=== PATIENT | male | born 1965 | race Two or more races ===

== ENCOUNTER 2016-11-09 23:45 | Emergency (ER) | payer OTHER ==
[~2016-11-09] VITALS: Ht 167.6 cm; Wt 136.1 kg
[~2016-11-09 23:45] MED LIST: [UNRECOGNIZED DRUG - CODE] PO
[2016-11-10 00:27] VITALS: BP 103/85
== END 2016-11-10 04:08 | disposition home or self-care (01) ==
LOC: ER 23:53
DX: B86 Scabies (principal); J44.9 Chronic obstructive pulmonary disease, unspecified; I10 Essential (primary) hypertension; I25.2 Old myocardial infarction; E11.9 Type 2 diabetes mellitus without complications; F17.210 Nicotine dependence, cigarettes, uncomplicated; Z85.9 Personal history of malignant neoplasm, unspecified

== ENCOUNTER 2017-01-15 14:27 | Emergency (ER) | payer OTHER ==
[~2017-01-15] VITALS: Ht 167.6 cm; Wt 136.1 kg
[2017-01-15 15:55] VITALS: BP 141/84
== END 2017-01-15 16:16 | disposition home or self-care (01) ==
LOC: ER 14:33
DX: B86 Scabies (principal); M13.862 Other specified arthritis, left knee; F17.210 Nicotine dependence, cigarettes, uncomplicated; M19.90 Unspecified osteoarthritis, unspecified site; J44.9 Chronic obstructive pulmonary disease, unspecified; E11.9 Type 2 diabetes mellitus without complications; I10 Essential (primary) hypertension; I25.2 Old myocardial infarction; X58.XXXD Exposure to other specified factors, subsequent encounter

== ENCOUNTER 2018-04-29 18:54 | Emergency (ER) | payer MEDICAID, OTHER ==
[~2018-04-29] VITALS: Ht 167.6 cm; Wt 136.1 kg
[2018-04-29 20:19] LABS: Basophils # (auto) 0.1 uL; Basophils % (auto) 1.1 % (0.0-2.0); Eosinophils # (auto) 0.2 uL; Eosinophils % (auto) 1.6 % (0.0-7.0); Hematocrit 50.9 % (41.0-53.0); Hemoglobin 17.4 g/dL (13.5-17.5); Lymphocytes # (auto) 1.6 uL; Lymphocytes % (auto) 13.9 % (10.0-50.0); Mean Corpuscular Hemoglobin 31.4 pg (28.0-32.0); Mean Corpuscular Hgb Conc. 34.2 g/dL (32.0-36.0); Mean Corpuscular Volume 91.9 fL (80.0-100.0); Monocytes # (auto) 0.6 uL; Monocytes % (auto) 5.5 % (0.0-12.0); Neutrophils # (auto) 9.1 uL; Neutrophils % (auto) 77.9 % (37.0-80.0); Nucleated Red Blood Cells % 0.1 %; Platelet Count (auto) 246 10^3/uL (140-450); Red Blood Cells 5.54 10^6/uL (4.5-5.90); Red Cell Distribution Width 13.6 % (11.8-14.3); White Blood Cell 11.7 10^3/uL (4.4-10.8)
[2018-04-29 20:32] LABS: Albumin 3.2 g/dL (3.4-5.0); Calcium 8.3 mg/dL (8.5-10.1); Potassium 4.2 mmol/L (3.5-5.1)
[2018-04-29 20:35] LABS: BUN/Creatinine Ratio 13.2; Bilirubin, Total 0.5 mg/dL (0.2-1.0); Total Protein 7.4 g/dL (6.4-8.2)
[2018-04-29] MEDS ORDERED: InsuLIN REG 1unit/0.01ml Soln (100units/ml) IV ONE (21:45)
[2018-04-29] MEDS ORDERED: SODIUM CHLORIDE 0.9% 1,000 ML IV ONE (21:45)
[2018-04-29] MEDS ORDERED: cefTRIAXone 1GM/10ml IVPUSH 10 ML IV ONE (21:45)
[2018-04-29] MEDS ORDERED: fentaNYL CITRATE 100 MCG/2 ML VL IV ONE (23:00)
[2018-04-30 00:01] VITALS: BP 108/73
== END 2018-04-29 23:59 | disposition home or self-care (01) ==
LOC: ER 18:54
DX: L74.0 Miliaria rubra (principal); E11.9 Type 2 diabetes mellitus without complications; J44.9 Chronic obstructive pulmonary disease, unspecified; I10 Essential (primary) hypertension; I25.2 Old myocardial infarction; F17.210 Nicotine dependence, cigarettes, uncomplicated
CPT/HCPCS: 36415; 80053; 82962; 83036; 85025; 96374; 96375; 99284; J0696; J1815; J3010; J7030

== ENCOUNTER 2018-05-29 13:30 | Emergency (ER) | payer MEDICAID ==
[~2018-05-29] VITALS: Ht 167.6 cm; Wt 136.1 kg
[2018-05-29] MEDS ORDERED: IBUPROFEN 600 MG TAB PO ONE (13:36)
[2018-05-29 14:41] VITALS: BP 136/76
[2018-05-29] MEDS ORDERED: DEXAMETHASONE SOD PHOS 10MG/1ML VIAL INJ IM ONE (14:45)
[2018-05-29] MEDS ORDERED: KETOROLAC TROMETH 60MG/2ML VIAL IM ONE (14:45)
== END 2018-05-29 16:21 | disposition home or self-care (01) ==
LOC: ER 13:30
DX: S83.91XA Sprain of unspecified site of right knee, initial encounter (principal); M25.461 Effusion, right knee; M19.90 Unspecified osteoarthritis, unspecified site; J44.9 Chronic obstructive pulmonary disease, unspecified; E11.9 Type 2 diabetes mellitus without complications; F17.210 Nicotine dependence, cigarettes, uncomplicated; I10 Essential (primary) hypertension; I25.2 Old myocardial infarction; X58.XXXA Exposure to other specified factors, initial encounter; Y93.02 Activity, running; Y92.488 Other paved roadways as the place of occurrence of the external cause; Y99.8 Other external cause status
CPT/HCPCS: 73700; 96372; 99284; J1100; J1885

== ENCOUNTER 2019-02-22 12:59 | Emergency (ER) | payer MEDICAID ==
[~2019-02-22] VITALS: Ht 167.6 cm; Wt 136.1 kg
[2019-02-22 17:02] VITALS: BP 121/70
== END 2019-02-22 17:06 | disposition home or self-care (01) ==
LOC: ER 12:59
DX: L21.9 Seborrheic dermatitis, unspecified (principal); L25.9 Unspecified contact dermatitis, unspecified cause; M19.90 Unspecified osteoarthritis, unspecified site; I25.10 Atherosclerotic heart disease of native coronary artery without angina pectoris; J44.9 Chronic obstructive pulmonary disease, unspecified; E11.9 Type 2 diabetes mellitus without complications; I10 Essential (primary) hypertension; I25.2 Old myocardial infarction; F17.210 Nicotine dependence, cigarettes, uncomplicated; Z79.899 Other long term (current) drug therapy; Z98.61 Coronary angioplasty status

== ENCOUNTER 2021-11-01 19:27 | Emergency (ER) | payer MEDICAID ==
[~2021-11-01] VITALS: Ht 167.6 cm; Wt 127.0 kg
[2021-11-01 19:29] VITALS: BP 121/67
[2021-11-01] MEDS ORDERED: VANCOMYCIN 1GM/250ML 500 ML IV ONE (21:45)
[2021-11-01] MEDS ORDERED: CEFTRIAXONE SODIUM 2 GM in D5W 5% 50 ML IV ONE (21:45)
== END 2021-11-02 02:02 | disposition left against medical advice (07) ==
LOC: ER 19:30
DX: T82.514A Breakdown (mechanical) of infusion catheter, initial encounter (principal); J44.9 Chronic obstructive pulmonary disease, unspecified; E11.9 Type 2 diabetes mellitus without complications; I10 Essential (primary) hypertension; F17.210 Nicotine dependence, cigarettes, uncomplicated
CPT/HCPCS: 99281; J0696; J7060

== ENCOUNTER 2022-01-09 14:50 | Inpatient (IN) | payer MEDICAID ==
[~2022-01-09] VITALS: Ht 172.7 cm; Wt 136.6 kg
[2022-01-09] MEDS ORDERED: LORazepam 2MG/ML-1ML VIAL IV ONE (15:45)
[2022-01-09 16:08] LABS: Basophils # (auto) 0.1 10 ^3/uL (0-0.2); Eosinophils # (auto) 0.2 10 ^3/uL (0-0.8); Eosinophils % (auto) 1.9 % (0.0-7.0); Mean Corpuscular Hemoglobin 30.9 pg (28.0-32.0); Monocytes # (auto) 0.4 10 ^3/uL (0-1.3)
[2022-01-09 16:14] LABS: Hematocrit 37.3 % (41.0-53.0); Hemoglobin 12.4 g/dL (13.5-17.5); Lymphocytes # (auto) 1.1 10 ^3/uL (0.4-5.4); Lymphocytes % (auto) 8.9 % (10.0-50.0); Mean Corpuscular Hgb Conc. 33.2 g/dL (32.0-36.0); Mean Corpuscular Volume 93.1 fL (80.0-100.0); Monocytes % (auto) 3.6 % (0.0-12.0); Neutrophils % (auto) 84.6 % (37.0-80.0); Red Blood Cells 4.01 10^6/uL (4.5-5.90); Red Cell Distribution Width 14.8 % (11.8-14.3); White Blood Cell 11.8 10^3/uL (4.4-10.8)
[2022-01-09 16:25] LABS: Albumin 3.6 g/dL (3.4-5.0); Calcium 8.8 mg/dL (8.5-10.1); Potassium 4.4 mmol/L (3.5-5.1)
[2022-01-09 16:28] LABS: BUN/Creatinine Ratio 21.6
[2022-01-09 16:31] LABS: Bilirubin, Total 0.8 mg/dL (0.2-1.0); Total Protein 7.5 g/dL (6.4-8.2)
[2022-01-09] MEDS ORDERED: IPRATROPIUM BROM 0.5 MG/2.5ML INH SOL ONE (17:08)
[2022-01-09] MEDS ORDERED: ALBUTEROL SULF 2.5 MG/0.5ML(0.5%) NEB SOLN ONE (17:08)
[2022-01-09] MEDS ORDERED: DexAMETHasone SOD PHOS 10MG/1ML VIAL INJ IV ONE (17:15)
[2022-01-09] MEDS ORDERED: IPRATROPIUM BROM 0.5 MG/2.5ML INH SOL NEB ONE (17:15)
[2022-01-09] MEDS ORDERED: ALBUTEROL SULF 2.5 MG/0.5ML(0.5%) NEB SOLN NEB ONE (17:15)
[2022-01-09] MEDS ORDERED: CIPROFLOXACIN 400MG/200ML 200 ML IV ONE (17:30)
[2022-01-09] MEDS ORDERED: PIPERACILLIN-TAZOB 3.375GM 100 ML IV ONE (17:30)
[2022-01-09] MEDS ORDERED: FUROSEMIDE 20 MG/2 ML VIAL IV ONE (17:30)
[2022-01-09] MEDS ORDERED: VANCOMYCIN 1GM/250ML 250 ML IV ONE (17:30)
[2022-01-09] MEDS ORDERED: NITROGLYCERIN 0.4 MG SL TAB SL PRN (18:15)
[2022-01-09] MEDS ORDERED: TEMAZEPAM 15 MG CAP PO PRN (18:15)
[2022-01-09] MEDS ORDERED: DOCUSATE SOD 100 MG CAP PO PRN (18:15)
[2022-01-09] MEDS ORDERED: ACETAMINOPHEN 325 MG TAB PO PRN (18:15)
[2022-01-09] MEDS ORDERED: MORPHINE SULFATE INJ 2 MG/ml SYRG IV PRN (18:15)
[2022-01-09] MEDS ORDERED: ONDANSETRON HCL 4 MG/2 ML VIAL IV PRN (18:15)
[2022-01-09 19:24] LABS: Urine Bacteria NONE SEEN /hpf (None Seen); Urine Blood Negative /uL (Negative); Urine Specific Gravity 1.007 (1.001-1.035); Urine WBC <1 /hpf (0 - 3)
[2022-01-09] MEDS ORDERED: LORazepam 2MG/ML-1ML VIAL IV PRN (21:45)
[2022-01-09] MEDS ORDERED: METF-370 PO (23:10)
[2022-01-09] MEDS ORDERED: ATOR40TA52 PO (23:10)
[2022-01-09] MEDS ORDERED: MET50T PO (23:10)
[2022-01-09] MEDS ORDERED: GLIP5TAB12 PO (23:10)
[2022-01-09] MEDS ORDERED: BECL80AE11 IN (23:10)
[2022-01-09] MEDS ORDERED: HYDR-3682 PO (23:10)
[2022-01-09] MEDS ORDERED: FENO54TA4 PO (23:10)
[2022-01-09] MEDS ORDERED: TICA90TA PO (23:10)
[2022-01-09] MEDS ORDERED: HYDR-4798 PO (23:10)
[2022-01-10] MEDS: MORPHINE SULFATE INJ 2 MG/ml SYRG IV PRN ×3 (00:05→21:28)
[2022-01-10 00:33] VITALS: BP 145/72
[2022-01-10] MEDS: IPRATROPIUM BROM 0.5 MG/2.5ML INH SOL NEB PRN ×2 (01:55→20:19)
[2022-01-10 05:00] VITALS: BP 97/54
[2022-01-10 08:11] LABS: Basophils # (auto) 0.1 10 ^3/uL (0-0.2); Basophils % (auto) 0.6 % (0.0-2.0); Eosinophils # (auto) 0 10 ^3/uL (0-0.8); Hematocrit 35.6 % (41.0-53.0); Hemoglobin 12.1 g/dL (13.5-17.5); Lymphocytes # (auto) 0.5 10 ^3/uL (0.4-5.4); Mean Corpuscular Hemoglobin 31.1 pg (28.0-32.0); Mean Corpuscular Hgb Conc. 34.1 g/dL (32.0-36.0); Mean Corpuscular Volume 91.2 fL (80.0-100.0); Monocytes # (auto) 0.4 10 ^3/uL (0-1.3); Neutrophils # (auto) 11.5 10 ^3/uL (1.6-8.6); Neutrophils % (auto) 92.4 % (37.0-80.0); Nucleated Red Blood Cells % 0.1 %; Red Cell Distribution Width 14.4 % (11.8-14.3); White Blood Cell 12.5 10^3/uL (4.4-10.8)
[2022-01-10 08:37] LABS: Albumin 3.3 g/dL (3.4-5.0); Calcium 8.7 mg/dL (8.5-10.1); Potassium 4.1 mmol/L (3.5-5.1)
[2022-01-10 08:40] LABS: BUN/Creatinine Ratio 22.9; Bilirubin, Total 0.8 mg/dL (0.2-1.0); Total Protein 7.7 g/dL (6.4-8.2)
[2022-01-10 09:02] VITALS: BP 111/60
[2022-01-10 13:00] VITALS: BP 126/70
[2022-01-10] MEDS ORDERED: ENOXAPARIN SOD 40 MG/0.4 ML SYRINGE SC SCH (13:45)
[2022-01-10] MEDS: PIPERACILLIN-TAZOB 3.375GM 100 ML IV SCH ×2 (14:00→21:29)
[2022-01-10 16:55] VITALS: BP 114/74
[2022-01-10] MEDS ORDERED: DEXTROSE (50%) 50ML SYRG IV SCH (19:00)
[2022-01-10] MEDS: FAMOTIDINE (10MG/ML) 2ML VL IV SCH (21:29)
[2022-01-10] MEDS: TICAGRELOR 90 MG TAB PO SCH (21:29)
[2022-01-10] MEDS: ATORVASTATIN 20 MG TAB PO SCH (21:29)
[2022-01-10] MEDS: ACCU-CHEK COMFORT CURVE STRIP VI SCH (21:47)
[2022-01-10] MEDS: InsuLIN REG 1unit/0.01ml Soln (100units/ml) SC SCH (21:48)
[2022-01-10 22:00] VITALS: BP 129/73
[2022-01-10] MEDS ORDERED: traZODone HCL 50 MG TAB PO PRN (22:00)
[2022-01-11] MEDS: IPRATROPIUM BROM 0.5 MG/2.5ML INH SOL NEB PRN ×5 (03:21→12:53)
[2022-01-11] MEDS: ALPRAZolam 0.5 MG TAB PO PRN ×2 (03:44→15:40)
[2022-01-11 05:00] VITALS: BP 121/104
[2022-01-11] MEDS: PIPERACILLIN-TAZOB 3.375GM 100 ML IV SCH ×3 (06:10→22:38)
[2022-01-11] MEDS: ACCU-CHEK COMFORT CURVE STRIP VI SCH ×4 (06:54→22:44)
[2022-01-11] MEDS: InsuLIN REG 1unit/0.01ml Soln (100units/ml) SC SCH ×4 (06:58→22:41)
[2022-01-11] MEDS: MORPHINE SULFATE INJ 2 MG/ml SYRG IV PRN (08:30)
[2022-01-11] MEDS: HYDROcodone-ACET 5/325MG TAB PO PRN ×2 (08:49→19:54)
[2022-01-11 09:00] VITALS: BP 101/55
[2022-01-11] MEDS: FAMOTIDINE (10MG/ML) 2ML VL IV SCH ×2 (09:33→22:38)
[2022-01-11] MEDS: ASPirin 81 mg TAB PO SCH (09:34)
[2022-01-11] MEDS: TICAGRELOR 90 MG TAB PO SCH ×2 (09:34→22:39)
[2022-01-11] MEDS: AZITHROMYCIN 500MG/ 250ML 250 ML IV SCH (09:34)
[2022-01-11] MEDS ORDERED: Fenofibrate 48 MG TABLET PO SCH (10:00)
[2022-01-11 10:10] LABS: Basophils # (auto) 0.1 10 ^3/uL (0-0.2); Basophils % (auto) 0.9 % (0.0-2.0); Eosinophils # (auto) 0.3 10 ^3/uL (0-0.8); Eosinophils % (auto) 3.1 % (0.0-7.0); Hematocrit 35.7 % (41.0-53.0); Hemoglobin 11.9 g/dL (13.5-17.5); Lymphocytes # (auto) 1.1 10 ^3/uL (0.4-5.4); Lymphocytes % (auto) 10.1 % (10.0-50.0); Mean Corpuscular Hemoglobin 30.5 pg (28.0-32.0); Mean Corpuscular Hgb Conc. 33.3 g/dL (32.0-36.0); Mean Corpuscular Volume 91.6 fL (80.0-100.0); Monocytes # (auto) 0.6 10 ^3/uL (0-1.3); Monocytes % (auto) 5.8 % (0.0-12.0); Neutrophils # (auto) 8.7 10 ^3/uL (1.6-8.6); Neutrophils % (auto) 80.1 % (37.0-80.0); Nucleated Red Blood Cells % 0.2 %; Red Cell Distribution Width 14.4 % (11.8-14.3); White Blood Cell 10.9 10^3/uL (4.4-10.8)
[2022-01-11 10:11] LABS: Albumin 2.9 g/dL (3.4-5.0); Calcium 8.5 mg/dL (8.5-10.1); Potassium 4.5 mmol/L (3.5-5.1)
[2022-01-11 10:15] LABS: Bilirubin, Total 0.8 mg/dL (0.2-1.0); Phosphorus 4.4 mg/dL (2.5-4.90); Total Protein 6.9 g/dL (6.4-8.2)
[2022-01-11] MEDS ORDERED: FUROSEMIDE 40 MG/4 ML VIAL IV ONE ×2 (11:15→13:45)
[2022-01-11 13:00] VITALS: BP 106/48
[2022-01-11 17:00] VITALS: BP 138/75
[2022-01-11 22:00] VITALS: BP 109/77
[2022-01-11] MEDS: ATORVASTATIN 20 MG TAB PO SCH (22:39)
[2022-01-11] MEDS: glipiZIDE 5 MG TAB PO SCH (22:40)
[2022-01-11] MEDS: METOPROLOL TARTRATE 50 MG TAB PO SCH (22:44)
[2022-01-12 05:00] VITALS: BP 102/43
[2022-01-12] MEDS: ACCU-CHEK COMFORT CURVE STRIP VI SCH ×4 (05:49→22:18)
[2022-01-12] MEDS ORDERED: FUROSEMIDE 40 MG/4 ML VIAL IV ONE (06:00)
[2022-01-12] MEDS: PIPERACILLIN-TAZOB 3.375GM 100 ML IV SCH ×2 (06:03→17:27)
[2022-01-12] MEDS: InsuLIN REG 1unit/0.01ml Soln (100units/ml) SC SCH ×4 (06:04→22:30)
[2022-01-12 09:00] VITALS: BP 99/50
[2022-01-12] MEDS: METOPROLOL TARTRATE 50 MG TAB PO SCH ×2 (10:00→22:18)
[2022-01-12] MEDS: FAMOTIDINE (10MG/ML) 2ML VL IV SCH ×2 (10:16→22:31)
[2022-01-12] MEDS: ASPirin 81 mg TAB PO SCH (10:16)
[2022-01-12] MEDS: TICAGRELOR 90 MG TAB PO SCH ×2 (10:17→22:16)
[2022-01-12] MEDS: AZITHROMYCIN 500MG/ 250ML 250 ML IV SCH (10:17)
[2022-01-12] MEDS: glipiZIDE 5 MG TAB PO SCH ×2 (10:24→22:17)
[2022-01-12 13:00] VITALS: BP 128/80
[2022-01-12] MEDS: IPRATROPIUM BROM 0.5 MG/2.5ML INH SOL NEB PRN ×2 (16:10→22:20)
[2022-01-12 17:00] VITALS: BP 124/61
[2022-01-12 17:52] VITALS: BP 128/80
[2022-01-12] MEDS: HYDROcodone-ACET 5/325MG TAB PO PRN (18:33)
[2022-01-12 22:00] VITALS: BP 127/86
[2022-01-12] MEDS: ATORVASTATIN 20 MG TAB PO SCH (22:17)
[2022-01-13] MEDS: HYDROcodone-ACET 5/325MG TAB PO PRN (00:15)
[2022-01-13] MEDS: PIPERACILLIN-TAZOB 3.375GM 100 ML IV SCH ×3 (00:39→18:28)
[2022-01-13 05:00] VITALS: BP 98/62
[2022-01-13] MEDS: ACCU-CHEK COMFORT CURVE STRIP VI SCH ×4 (05:57→22:19)
[2022-01-13] MEDS: InsuLIN REG 1unit/0.01ml Soln (100units/ml) SC SCH ×4 (06:00→22:19)
[2022-01-13 08:00] VITALS: BP 110/71
[2022-01-13 08:52] VITALS: BP 110/71
[2022-01-13] MEDS: AZITHROMYCIN 500MG/ 250ML 250 ML IV SCH (10:19)
[2022-01-13] MEDS: glipiZIDE 5 MG TAB PO SCH ×2 (10:20→22:16)
[2022-01-13] MEDS: METOPROLOL TARTRATE 50 MG TAB PO SCH ×2 (10:20→22:18)
[2022-01-13] MEDS: TICAGRELOR 90 MG TAB PO SCH ×2 (10:20→22:16)
[2022-01-13] MEDS: ASPirin 81 mg TAB PO SCH (10:21)
[2022-01-13] MEDS: FAMOTIDINE (10MG/ML) 2ML VL IV SCH ×2 (10:21→22:00)
[2022-01-13] MEDS: MORPHINE SULFATE INJ 2 MG/ml SYRG IV PRN ×3 (10:29→20:08)
[2022-01-13 12:32] VITALS: BP 106/60
[2022-01-13] MEDS ORDERED: IOHEXOL 350 MG/ML 100ML IJ ONE (15:24)
[2022-01-13 17:17] VITALS: BP 114/74
[2022-01-13 22:00] VITALS: BP 143/59
[2022-01-13] MEDS: ATORVASTATIN 20 MG TAB PO SCH (22:16)
[2022-01-14] MEDS: PIPERACILLIN-TAZOB 3.375GM 100 ML IV SCH ×3 (01:05→17:56)
[2022-01-14] MEDS: IPRATROPIUM BROM 0.5 MG/2.5ML INH SOL NEB PRN (02:58)
[2022-01-14 05:00] VITALS: BP_SYST 120; BP_SYST 85; BP_DIAS 41; BP_DIAS 63
[2022-01-14 05:50] LABS: Basophils # (auto) 0.1 10 ^3/uL (0-0.2); Basophils % (auto) 0.7 % (0.0-2.0); Eosinophils # (auto) 0.4 10 ^3/uL (0-0.8); Eosinophils % (auto) 3.3 % (0.0-7.0); Hematocrit 35.9 % (41.0-53.0); Hemoglobin 12.1 g/dL (13.5-17.5); Lymphocytes # (auto) 1.2 10 ^3/uL (0.4-5.4); Lymphocytes % (auto) 9.6 % (10.0-50.0); Mean Corpuscular Hemoglobin 30.9 pg (28.0-32.0); Mean Corpuscular Hgb Conc. 33.7 g/dL (32.0-36.0); Mean Corpuscular Volume 91.5 fL (80.0-100.0); Monocytes # (auto) 0.7 10 ^3/uL (0-1.3); Monocytes % (auto) 5.6 % (0.0-12.0); Neutrophils # (auto) 9.8 10 ^3/uL (1.6-8.6); Neutrophils % (auto) 80.8 % (37.0-80.0); Nucleated Red Blood Cells % 0.1 %; Red Blood Cells 3.92 10^6/uL (4.5-5.90); Red Cell Distribution Width 14.5 % (11.8-14.3); White Blood Cell 12.1 10^3/uL (4.4-10.8)
[2022-01-14 06:07] LABS: Albumin 3.2 g/dL (3.4-5.0); BUN/Creatinine Ratio 27.1; Calcium 8.8 mg/dL (8.5-10.1); Magnesium 2.1 mg/dL (1.6-2.6)
[2022-01-14 06:21] LABS: Bilirubin, Total 0.8 mg/dL (0.2-1.0); Phosphorus 4.6 mg/dL (2.5-4.90); Total Protein 6.7 g/dL (6.4-8.2)
[2022-01-14] MEDS: InsuLIN REG 1unit/0.01ml Soln (100units/ml) SC SCH ×4 (06:31→22:57)
[2022-01-14 06:43] VITALS: BP 96/68
[2022-01-14] MEDS: ACCU-CHEK COMFORT CURVE STRIP VI SCH ×4 (06:46→22:56)
[2022-01-14 08:00] VITALS: BP 107/68
[2022-01-14] MEDS: METOPROLOL TARTRATE 50 MG TAB PO SCH ×2 (08:40→22:56)
[2022-01-14] MEDS: AZITHROMYCIN 500MG/ 250ML 250 ML IV SCH (08:42)
[2022-01-14] MEDS: TICAGRELOR 90 MG TAB PO SCH ×2 (08:42→22:53)
[2022-01-14] MEDS: glipiZIDE 5 MG TAB PO SCH ×2 (08:43→22:55)
[2022-01-14] MEDS: ASPirin 81 mg TAB PO SCH (08:43)
[2022-01-14 09:11] VITALS: BP 107/68
[2022-01-14] MEDS ORDERED: FUROSEMIDE 20 MG/2 ML VIAL IV ONE (09:30)
[2022-01-14] MEDS: FAMOTIDINE (10MG/ML) 2ML VL IV SCH ×2 (10:00→23:10)
[2022-01-14 14:43] VITALS: BP 106/74
[2022-01-14 22:00] VITALS: BP 116/67
[2022-01-14] MEDS: MORPHINE SULFATE INJ 2 MG/ml SYRG IV PRN (22:53)
[2022-01-14] MEDS: ATORVASTATIN 20 MG TAB PO SCH (22:55)
[2022-01-14] MEDS ORDERED: FAMOTIDINE (10MG/ML) 2ML VL IV ONE (22:57)
[2022-01-15] MEDS: IPRATROPIUM BROM 0.5 MG/2.5ML INH SOL NEB PRN ×2 (00:45→15:22)
[2022-01-15] MEDS: PIPERACILLIN-TAZOB 3.375GM 100 ML IV SCH ×3 (01:01→17:01)
[2022-01-15] MEDS: HYDROcodone-ACET 5/325MG TAB PO PRN ×2 (04:50→14:10)
[2022-01-15 05:00] VITALS: BP 92/55
[2022-01-15] MEDS: ACCU-CHEK COMFORT CURVE STRIP VI SCH ×4 (06:21→22:00)
[2022-01-15] MEDS: InsuLIN REG 1unit/0.01ml Soln (100units/ml) SC SCH ×4 (06:27→22:01)
[2022-01-15 09:00] VITALS: BP 99/65
[2022-01-15] MEDS: FAMOTIDINE (10MG/ML) 2ML VL IV SCH ×2 (09:46→22:00)
[2022-01-15] MEDS: METOPROLOL TARTRATE 50 MG TAB PO SCH ×2 (09:46→22:00)
[2022-01-15] MEDS: AZITHROMYCIN 500MG/ 250ML 250 ML IV SCH (09:47)
[2022-01-15] MEDS: TICAGRELOR 90 MG TAB PO SCH ×2 (09:48→21:58)
[2022-01-15] MEDS: ASPirin 81 mg TAB PO SCH (09:48)
[2022-01-15] MEDS: glipiZIDE 5 MG TAB PO SCH ×2 (10:13→21:59)
[2022-01-15 13:00] VITALS: BP 107/68
[2022-01-15] MEDS: ALPRAZolam 0.5 MG TAB PO PRN (13:27)
[2022-01-15] MEDS ORDERED: FUROSEMIDE 20 MG/2 ML VIAL IV ONE ×2 (14:00→18:00)
[2022-01-15 17:00] VITALS: BP 124/70
[2022-01-15] MEDS: ATORVASTATIN 20 MG TAB PO SCH (21:59)
[2022-01-15 22:00] VITALS: BP 106/52
[2022-01-15] MEDS: MORPHINE SULFATE INJ 2 MG/ml SYRG IV PRN (22:03)
[2022-01-15 22:33] VITALS: BP 106/52
[2022-01-16] MEDS: PIPERACILLIN-TAZOB 3.375GM 100 ML IV SCH ×3 (01:15→16:36)
[2022-01-16 05:00] VITALS: BP 108/60
[2022-01-16] MEDS: ACCU-CHEK COMFORT CURVE STRIP VI SCH ×4 (06:24→21:34)
[2022-01-16] MEDS: InsuLIN REG 1unit/0.01ml Soln (100units/ml) SC SCH ×4 (06:29→21:44)
[2022-01-16] MEDS: AZITHROMYCIN 500MG/ 250ML 250 ML IV SCH (08:19)
[2022-01-16] MEDS: TICAGRELOR 90 MG TAB PO SCH ×2 (08:19→21:43)
[2022-01-16] MEDS: ASPirin 81 mg TAB PO SCH (08:19)
[2022-01-16] MEDS: METOPROLOL TARTRATE 50 MG TAB PO SCH ×2 (08:20→21:45)
[2022-01-16] MEDS: FAMOTIDINE (10MG/ML) 2ML VL IV SCH ×2 (08:20→21:45)
[2022-01-16] MEDS: glipiZIDE 5 MG TAB PO SCH ×2 (08:20→21:43)
[2022-01-16] MEDS: FUROSEMIDE 20 MG/2 ML VIAL IV SCH (08:22)
[2022-01-16] MEDS: MORPHINE SULFATE INJ 2 MG/ml SYRG IV PRN ×2 (08:22→22:59)
[2022-01-16 09:00] VITALS: BP 105/65
[2022-01-16] MEDS: IPRATROPIUM BROM 0.5 MG/2.5ML INH SOL NEB PRN ×2 (09:35→18:48)
[2022-01-16 13:00] VITALS: BP 111/72
[2022-01-16] MEDS: ATORVASTATIN 20 MG TAB PO SCH (21:43)
[2022-01-16 22:00] VITALS: BP 93/32
[2022-01-17] MEDS: PIPERACILLIN-TAZOB 3.375GM 100 ML IV SCH ×2 (01:03→08:31)
[2022-01-17 05:00] VITALS: BP 90/38
[2022-01-17 06:29] LABS: Albumin 3.1 g/dL (3.4-5.0); Calcium 8.8 mg/dL (8.5-10.1)
[2022-01-17 06:31] LABS: Basophils # (auto) 0.1 10 ^3/uL (0-0.2); Basophils % (auto) 1.1 % (0.0-2.0); Eosinophils # (auto) 0.4 10 ^3/uL (0-0.8); Eosinophils % (auto) 4.1 % (0.0-7.0); Hematocrit 35.6 % (41.0-53.0); Hemoglobin 12.7 g/dL (13.5-17.5); Lymphocytes # (auto) 1.5 10 ^3/uL (0.4-5.4); Lymphocytes % (auto) 14.1 % (10.0-50.0); Mean Corpuscular Hemoglobin 32.1 pg (28.0-32.0); Mean Corpuscular Hgb Conc. 35.8 g/dL (32.0-36.0); Mean Corpuscular Volume 89.6 fL (80.0-100.0); Monocytes # (auto) 0.7 10 ^3/uL (0-1.3); Monocytes % (auto) 6.7 % (0.0-12.0); Nucleated Red Blood Cells % 0.1 %; Red Blood Cells 3.97 10^6/uL (4.5-5.90); Red Cell Distribution Width 14.2 % (11.8-14.3); White Blood Cell 10.9 10^3/uL (4.4-10.8)
[2022-01-17 06:33] LABS: BUN/Creatinine Ratio 27.2; Bilirubin, Total 0.9 mg/dL (0.2-1.0)
[2022-01-17] MEDS: InsuLIN REG 1unit/0.01ml Soln (100units/ml) SC SCH ×4 (06:36→21:37)
[2022-01-17] MEDS: ACCU-CHEK COMFORT CURVE STRIP VI SCH ×4 (06:36→21:35)
[2022-01-17] MEDS: MORPHINE SULFATE INJ 2 MG/ml SYRG IV PRN ×2 (08:42→21:00)
[2022-01-17 09:00] VITALS: BP 101/55
[2022-01-17] MEDS: AZITHROMYCIN 500MG/ 250ML 250 ML IV SCH (10:00)
[2022-01-17] MEDS: METOPROLOL TARTRATE 50 MG TAB PO SCH (10:00)
[2022-01-17] MEDS: FUROSEMIDE 20 MG/2 ML VIAL IV SCH (10:00)
[2022-01-17] MEDS: TICAGRELOR 90 MG TAB PO SCH ×2 (10:42→21:33)
[2022-01-17] MEDS: ASPirin 81 mg TAB PO SCH (10:42)
[2022-01-17] MEDS: glipiZIDE 5 MG TAB PO SCH ×2 (10:43→21:34)
[2022-01-17] MEDS: FAMOTIDINE 20 MG TAB PO SCH ×2 (12:00→21:35)
[2022-01-17 13:00] VITALS: BP 116/72
[2022-01-17] MEDS ORDERED: levoFLOXacin 750MG 150 ML IV ONE (13:45)
[2022-01-17 17:00] VITALS: BP 109/59
[2022-01-17] MEDS: SACUBITRIL-VALSARTAN 24mg/26mg TAB PO SCH (21:34)
[2022-01-17] MEDS: CARVEDILOL 3.125 MG TAB PO SCH (21:34)
[2022-01-17] MEDS: ATORVASTATIN 20 MG TAB PO SCH (21:35)
[2022-01-17 21:51] VITALS: BP 140/71
[2022-01-17] MEDS: IPRATROPIUM BROM 0.5 MG/2.5ML INH SOL NEB PRN (23:35)
[2022-01-17] MEDS: ALPRAZolam 0.5 MG TAB PO PRN (23:37)
[2022-01-18 05:02] VITALS: BP 99/56
[2022-01-18] MEDS: ACCU-CHEK COMFORT CURVE STRIP VI SCH ×4 (06:43→21:58)
[2022-01-18] MEDS: InsuLIN REG 1unit/0.01ml Soln (100units/ml) SC SCH ×3 (06:44→22:09)
[2022-01-18 08:58] VITALS: BP 109/65
[2022-01-18] MEDS: CARVEDILOL 3.125 MG TAB PO SCH ×2 (10:00→21:57)
[2022-01-18] MEDS: FUROSEMIDE 20 MG/2 ML VIAL IV SCH (10:00)
[2022-01-18] MEDS: levoFLOXacin 750MG 150 ML IV SCH (10:10)
[2022-01-18] MEDS: FAMOTIDINE 20 MG TAB PO SCH ×2 (10:15→21:58)
[2022-01-18] MEDS: DAPAGLIFLOZIN 5 MG TAB PO SCH (10:17)
[2022-01-18] MEDS: TICAGRELOR 90 MG TAB PO SCH ×2 (10:17→21:56)
[2022-01-18] MEDS: SACUBITRIL-VALSARTAN 24mg/26mg TAB PO SCH ×2 (10:17→21:57)
[2022-01-18] MEDS: ASPirin 81 mg TAB PO SCH (10:18)
[2022-01-18] MEDS: glipiZIDE 5 MG TAB PO SCH ×2 (10:27→22:03)
[2022-01-18 13:00] VITALS: BP 111/51
[2022-01-18] MEDS: IPRATROPIUM BROM 0.5 MG/2.5ML INH SOL NEB PRN (14:38)
[2022-01-18 17:00] VITALS: BP 128/85
[2022-01-18] MEDS: MORPHINE SULFATE INJ 2 MG/ml SYRG IV PRN (20:25)
[2022-01-18] MEDS: ATORVASTATIN 20 MG TAB PO SCH (21:57)
[2022-01-18 22:00] VITALS: BP 118/60
[2022-01-19] MEDS: IPRATROPIUM BROM 0.5 MG/2.5ML INH SOL NEB PRN (00:14)
[2022-01-19] MEDS: MORPHINE SULFATE INJ 2 MG/ml SYRG IV PRN ×2 (01:04→21:03)
[2022-01-19 05:00] VITALS: BP 96/44
[2022-01-19] MEDS: ACCU-CHEK COMFORT CURVE STRIP VI SCH ×3 (06:22→17:00)
[2022-01-19] MEDS: InsuLIN REG 1unit/0.01ml Soln (100units/ml) SC SCH ×3 (06:23→17:00)
[2022-01-19] MEDS: HYDROcodone-ACET 5/325MG TAB PO PRN (06:28)
[2022-01-19 08:05] VITALS: BP 96/44
[2022-01-19] MEDS: ALPRAZolam 0.5 MG TAB PO PRN (08:21)
[2022-01-19 09:00] VITALS: BP 116/58
[2022-01-19] MEDS: levoFLOXacin 750MG 150 ML IV SCH (10:57)
[2022-01-19] MEDS: FUROSEMIDE 20 MG/2 ML VIAL IV SCH (10:59)
[2022-01-19] MEDS: ASPirin 81 mg TAB PO SCH (10:59)
[2022-01-19] MEDS: CARVEDILOL 3.125 MG TAB PO SCH (11:00)
[2022-01-19] MEDS: DAPAGLIFLOZIN 5 MG TAB PO SCH (11:01)
[2022-01-19] MEDS: FAMOTIDINE 20 MG TAB PO SCH (11:01)
[2022-01-19] MEDS: TICAGRELOR 90 MG TAB PO SCH (11:01)
[2022-01-19] MEDS: SACUBITRIL-VALSARTAN 24mg/26mg TAB PO SCH (11:02)
[2022-01-19] MEDS: glipiZIDE 5 MG TAB PO SCH (11:04)
[2022-01-19 13:00] VITALS: BP 103/63
[2022-01-19] MEDS ORDERED: LEVO-28 PO (16:44)
[2022-01-19] MEDS ORDERED: SACU1TAB PO (16:44)
[2022-01-19] MEDS ORDERED: ASPI-325 PO (16:44)
[2022-01-19] MEDS ORDERED: FURO40TA4 PO (16:44)
[2022-01-19] MEDS ORDERED: CAR3125T PO (16:44)
[2022-01-19 17:00] VITALS: BP 118/78
[2022-01-19 21:03] VITALS: BP 112/89
== END 2022-01-19 21:58 | disposition home or self-care (01) | DRG 137 ==
LOC: ER 14:50 → EDUNIT# 14:50 → EDBD 14:50 → TELE 18:11 → TELE-WESTW 22:02
PROVIDERS: ADMIT Nurse Practitioner; ATTEND Nurse Practitioner
DX: J15.1 Pneumonia due to Pseudomonas (principal); J96.21 Acute and chronic respiratory failure with hypoxia; I50.23 Acute on chronic systolic (congestive) heart failure; I42.9 Cardiomyopathy, unspecified; Z93.0 Tracheostomy status; D63.8 Anemia in other chronic diseases classified elsewhere; I11.0 Hypertensive heart disease with heart failure; J44.0 Chronic obstructive pulmonary disease with (acute) lower respiratory infection; E11.65 Type 2 diabetes mellitus with hyperglycemia; E66.01 Morbid (severe) obesity due to excess calories; Z68.41 Body mass index [BMI] 40.0-44.9, adult; E78.5 Hyperlipidemia, unspecified; F17.210 Nicotine dependence, cigarettes, uncomplicated; F41.9 Anxiety disorder, unspecified; I25.10 Atherosclerotic heart disease of native coronary artery without angina pectoris; I25.2 Old myocardial infarction; E78.00 Pure hypercholesterolemia, unspecified; M19.90 Unspecified osteoarthritis, unspecified site; Z82.49 Family history of ischemic heart disease and other diseases of the circulatory system; Z83.3 Family history of diabetes mellitus
CPT/HCPCS: 36415; 36600; 71045; 71275; 80053; 81001; 82805; 82962; 83735; 83880; 84100; 84484; 85025; 87070; 87077; 87186; 87205; 93005; 93306; 94640; 96374; 96375; G0378; J1100; J1815; J1956; J2543; J3490

== ENCOUNTER 2022-12-24 13:40 | Emergency (ER) | payer MEDICAID ==
[~2022-12-24] VITALS: Ht 172.7 cm; Wt 127.2 kg
[~2022-12-24 13:40] MED LIST changes: +ASPI-325 PO; +ATOR40TA52 PO; +BECL80AE11 IN; +CAR3125T PO; +FENO54TA4 PO; +FURO40TA4 PO; +GLIP5TAB12 PO; +HYDR-3682 PO; +HYDR-4798 PO; +LEVO-28 PO; +METF-370 PO; +SACU1TAB PO; +TICA90TA PO
[2022-12-24 14:47] LABS: Basophils # (auto) 0.1 10 ^3/uL (0-0.2); Basophils % (auto) 0.7 % (0.0-2.0); Eosinophils # (auto) 0.2 10 ^3/uL (0-0.8); Eosinophils % (auto) 1.5 % (0.0-7.0); Hematocrit 43.5 % (41.0-53.0); Hemoglobin 14.3 g/dL (13.5-17.5); Lymphocytes # (auto) 1.1 10 ^3/uL (0.4-5.4); Lymphocytes % (auto) 8.5 % (10.0-50.0); Mean Corpuscular Hemoglobin 30.3 pg (28.0-32.0); Mean Corpuscular Volume 91.9 fL (80.0-100.0); Monocytes # (auto) 0.8 10 ^3/uL (0-1.3); Monocytes % (auto) 6.4 % (0.0-12.0); Neutrophils % (auto) 82.9 % (37.0-80.0); Nucleated Red Blood Cells % 0.1 %; Red Blood Cells 4.73 10^6/uL (4.5-5.90); Red Cell Distribution Width 13.4 % (11.8-14.3); White Blood Cell 13.3 10^3/uL (4.4-10.8)
[2022-12-24 15:04] LABS: Alanine Aminotransferase 25 U/L (16-61); Albumin 3.1 g/dL (3.4-5.0); Anion Gap 10 (5-15); Aspartate Aminotransferase 19 U/L (15-37); BUN/Creatinine Ratio 24.6 (10.0-20.0); Blood Urea Nitrogen 28 mg/dL (7-18); Carbon Dioxide 20 mmol/L (21-32); Chloride 109 mmol/L (98-107); GFR African American 86 mL/min; GFR Non-African American 71 mL/min; Glucose 171 mg/dL (74-106); Magnesium 2.2 mg/dL (1.6-2.6); Potassium 4.6 mmol/L (3.5-5.1); Sodium 139 mmol/L (136-145)
[2022-12-24 15:07] LABS: Alkaline Phosphatase 79 U/L (45-117); Total Protein 6.5 g/dL (6.4-8.2)
[2022-12-24] MEDS ORDERED: PERCOT PO (17:38)
[2022-12-24 17:40] VITALS: BP 95/48
[2022-12-24] MEDS: HYDROcodone-ACET 10/325MG TAB PO ONE (17:46)
== END 2022-12-24 17:52 | disposition home or self-care (01) ==
LOC: ER 13:40 → EDBD 13:40 → ER 17:49
DX: S20.212A Contusion of left front wall of thorax, initial encounter (principal); J44.9 Chronic obstructive pulmonary disease, unspecified; E11.9 Type 2 diabetes mellitus without complications; I10 Essential (primary) hypertension; F17.210 Nicotine dependence, cigarettes, uncomplicated; E66.01 Morbid (severe) obesity due to excess calories; Z88.1 Allergy status to other antibiotic agents; Z88.6 Allergy status to analgesic agent; Z68.41 Body mass index [BMI] 40.0-44.9, adult; W01.0XXA Fall on same level from slipping, tripping and stumbling without subsequent striking against object, initial encounter; Y93.01 Activity, walking, marching and hiking; Y92.89 Other specified places as the place of occurrence of the external cause; Y99.8 Other external cause status
CPT/HCPCS: 36415; 71045; 80053; 83735; 84484; 85025; 93005

== ENCOUNTER 2023-07-17 06:16 | Inpatient (IN) | payer MEDICAID ==
[2023-07-17] VITALS (11 sets, daily range): BP systolic 105–126; BP diastolic 62–79; PULSE 75–103; RESP 13–20; TEMP 97.3–98.6; O2SAT 96–100
[~2023-07-17] VITALS: Ht 167.6 cm; Wt 133.0 kg
[~2023-07-17 06:16] MED LIST changes: -LEVO-28 PO; +LEVO500T91 PO; +PERCOT PO
[2023-07-17 08:02] LABS: Basophils # (auto) 0.1 10 ^3/uL (0-0.2); Basophils % (auto) 0.9 % (0.0-2.0); Eosinophils # (auto) 0.4 10 ^3/uL (0-0.8); Eosinophils % (auto) 3.1 % (0.0-7.0); Hematocrit 36.3 % (41.0-53.0); Hemoglobin 11.8 g/dL (13.5-17.5); Lymphocytes # (auto) 1.7 10 ^3/uL (0.4-5.4); Lymphocytes % (auto) 15.2 % (10.0-50.0); Mean Corpuscular Hemoglobin 30.7 pg (28.0-32.0); Mean Corpuscular Hgb Conc. 32.6 g/dL (32.0-36.0); Mean Corpuscular Volume 94.3 fL (80.0-100.0); Monocytes # (auto) 0.7 10 ^3/uL (0-1.3); Monocytes % (auto) 6.3 % (0.0-12.0); Neutrophils # (auto) 8.6 10 ^3/uL (1.6-8.6); Neutrophils % (auto) 74.5 % (37.0-80.0); Red Blood Cells 3.85 10^6/uL (4.5-5.90); Red Cell Distribution Width 13.6 % (11.8-14.3); White Blood Cell 11.5 10^3/uL (4.4-10.8)
[2023-07-17 08:27] LABS: Alanine Aminotransferase 10 U/L (7-40); Albumin 4.2 g/dL (3.2-4.8); Alkaline Phosphatase 64 U/L (46-116); Anion Gap 9 (5-15); Aspartate Aminotransferase 9 U/L (13-40); BUN/Creatinine Ratio 25.3 (10.0-20.0); Blood Urea Nitrogen 22 mg/dL (9-23); Calcium 9.1 mg/dL (8.5-10.1); Carbon Dioxide 26 mmol/L (20-30); Chloride 105 mmol/L (98-107); Glucose 101 mg/dL (74-106); Potassium 4.3 mmol/L (3.5-5.1); Sodium 140 mmol/L (136-145)
[2023-07-17 08:28] LABS: Bilirubin, Total 0.3 mg/dL (0.2-1.0); Total Protein 6.8 g/dL (5.7-8.2)
[2023-07-17] MEDS ORDERED: cefTRIAXone 1GM/50ML D5W 50 ML IV ONE (08:30)
[2023-07-17] MEDS ORDERED: methylPREDNISolone SOD SUCC 125 MG/2 ML VL IV ONE (08:30)
[2023-07-17] MEDS ORDERED: ALBUTEROL SULF 2.5 MG/0.5ML(0.5%) NEB SOLN NEB ONE (08:30)
[2023-07-17] MEDS ORDERED: AZITHROMYCIN 500MG/ 250ML 250 ML IV ONE (08:30)
[2023-07-17] MEDS ORDERED: IPRATROPIUM BROM 0.5 MG/2.5ML INH SOL NEB ONE (08:30)
[2023-07-17 10:09] LABS: Magnesium 1.7 mg/dL (1.6-2.6)
[2023-07-17] MEDS ORDERED: DEXTROSE (50%) 50ML SYRG IV PRN (10:45)
[2023-07-17] MEDS ORDERED: MORPHINE SULFATE INJ 2 MG/ml SYRG IV PRN (10:45)
[2023-07-17] MEDS ORDERED: NITROGLYCERIN 0.4 MG SL TAB SL PRN (10:45)
[2023-07-17] MEDS ORDERED: DOCUSATE SOD 100 MG CAP PO PRN (10:45)
[2023-07-17] MEDS ORDERED: ACETAMINOPHEN 325 MG TAB PO PRN (10:45)
[2023-07-17] MEDS ORDERED: ONDANSETRON HCL 4 MG/2 ML VIAL IV PRN (10:45)
[2023-07-17] MEDS: ALBUTEROL SULF 2.5 MG/0.5ML(0.5%) NEB SOLN NEB SCH ×2 (11:53→18:28)
[2023-07-17] MEDS: IPRATROPIUM BROM 0.5 MG/2.5ML INH SOL NEB SCH ×2 (11:53→18:28)
[2023-07-17] MEDS: ACCU-CHEK COMFORT CURVE STRIP VI SCH ×3 (11:55→22:18)
[2023-07-17] MEDS: InsuLIN REG 1unit/0.01ml Soln (100units/ml) SC SCH ×3 (11:56→22:21)
[2023-07-17] MEDS: SODIUM CHLOR 0.9% PF (SALINE LOCK) 10ML VIAL/SYR IV SCH ×2 (14:04→22:17)
[2023-07-17] MEDS ORDERED: VANCOMYCIN PER PHARMACY 0 MG IV SCH (15:45)
[2023-07-17] MEDS ORDERED: CHOL50007 PO (15:50)
[2023-07-17] MEDS ORDERED: SIMV10TA20 PO (15:50)
[2023-07-17] MEDS ORDERED: PATIENTS OWN MEDICATION (Atorvastatin Calcium 1 TAB) PO SCH (18:00)
[2023-07-17] MEDS: VANCOMYCIN 1GM/200ML 250 ML IV SCH (18:14)
[2023-07-17] MEDS: glipiZIDE 5 MG TAB PO SCH (22:16)
[2023-07-17] MEDS: methylPREDNISolone SOD SUCC 40 MG/ML VL IV SCH (22:17)
[2023-07-17] MEDS: PIPERACILLIN-TAZOB 3.375GM 100 ML IV SCH (22:18)
[2023-07-17] MEDS: PRAVASTATIN SODIUM 20 MG TAB PO SCH (22:18)
[2023-07-17] MEDS: ATORVASTATIN 20 MG TAB PO SCH (22:18)
[2023-07-17] MEDS: CARVEDILOL 3.125 MG TAB PO SCH (22:22)
[2023-07-18] VITALS (15 sets, daily range): BP systolic 94–120; BP diastolic 46–74; PULSE 72–99; RESP 14–22; TEMP 97.3–98.1; O2SAT 96–100
[2023-07-18] MEDS: HYDROcodone-ACET 5/325MG TAB PO PRN ×2 (00:08→21:09)
[2023-07-18] MEDS: VANCOMYCIN 1GM/200ML 250 ML IV SCH ×2 (01:59→11:13)
[2023-07-18] MEDS: PIPERACILLIN-TAZOB 3.375GM 100 ML IV SCH ×2 (05:35→14:00)
[2023-07-18] MEDS: SODIUM CHLOR 0.9% PF (SALINE LOCK) 10ML VIAL/SYR IV SCH ×3 (05:35→22:46)
[2023-07-18] MEDS: ACCU-CHEK COMFORT CURVE STRIP VI SCH ×4 (06:24→22:51)
[2023-07-18] MEDS: InsuLIN REG 1unit/0.01ml Soln (100units/ml) SC SCH ×4 (06:25→22:38)
[2023-07-18] MEDS: IPRATROPIUM BROM 0.5 MG/2.5ML INH SOL NEB SCH ×3 (06:42→19:35)
[2023-07-18] MEDS: ALBUTEROL SULF 2.5 MG/0.5ML(0.5%) NEB SOLN NEB SCH ×3 (06:43→19:35)
[2023-07-18 06:58] LABS: Basophils # (auto) 0 10 ^3/uL (0-0.2); Basophils % (auto) 0.1 % (0.0-2.0); Eosinophils # (auto) 0 10 ^3/uL (0-0.8); Hematocrit 33.1 % (41.0-53.0); Hemoglobin 10.7 g/dL (13.5-17.5); Lymphocytes # (auto) 0.7 10 ^3/uL (0.4-5.4); Mean Corpuscular Hemoglobin 30.6 pg (28.0-32.0); Mean Corpuscular Hgb Conc. 32.4 g/dL (32.0-36.0); Mean Corpuscular Volume 94.5 fL (80.0-100.0); Monocytes # (auto) 0.4 10 ^3/uL (0-1.3); Monocytes % (auto) 2.6 % (0.0-12.0); Neutrophils # (auto) 15.5 10 ^3/uL (1.6-8.6); Neutrophils % (auto) 93.3 % (37.0-80.0); Nucleated Red Blood Cells % 0.1 %; Red Cell Distribution Width 13.4 % (11.8-14.3); White Blood Cell 16.6 10^3/uL (4.4-10.8)
[2023-07-18 07:20] LABS: Alanine Aminotransferase 12 U/L (7-40); Albumin 3.9 g/dL (3.2-4.8); Alkaline Phosphatase 60 U/L (46-116); Anion Gap 8 (5-15); Aspartate Aminotransferase < 8 U/L (13-40); BUN/Creatinine Ratio 24.7 (10.0-20.0); Bilirubin, Total 0.3 mg/dL (0.2-1.0); Blood Urea Nitrogen 21 mg/dL (9-23); Calcium 8.9 mg/dL (8.5-10.1); Carbon Dioxide 26 mmol/L (20-30); Chloride 104 mmol/L (98-107); Potassium 4.2 mmol/L (3.5-5.1); Sodium 138 mmol/L (136-145); Total Protein 6.4 g/dL (5.7-8.2)
[2023-07-18 07:24] LABS: Glucose 268 mg/dL (74-106)
[2023-07-18] MEDS ORDERED: cefTRIAXone 1GM/50ML D5W 50 ML IV SCH (09:00)
[2023-07-18] MEDS: Fenofibrate 48 MG PO SCH (10:00)
[2023-07-18] MEDS ORDERED: AZITHROMYCIN 500MG/ 250ML 250 ML IV SCH (10:00)
[2023-07-18] MEDS: ASPirin-EC 81 mg tab PO SCH (10:00)
[2023-07-18] MEDS: CHOLECALCIFEROL (VITD3) 1,000UNIT=25mCg TAB PO SCH (11:16)
[2023-07-18] MEDS: FUROSEMIDE 40 MG TAB PO SCH (11:19)
[2023-07-18] MEDS: CARVEDILOL 3.125 MG TAB PO SCH ×2 (11:21→22:46)
[2023-07-18] MEDS: TICAGRELOR 90 MG TAB PO SCH (11:21)
[2023-07-18] MEDS: methylPREDNISolone SOD SUCC 40 MG/ML VL IV SCH ×2 (11:21→22:46)
[2023-07-18] MEDS: glipiZIDE 5 MG TAB PO SCH ×2 (11:46→22:00)
[2023-07-18] MEDS: ENOXAPARIN SOD 30 MG/0.3 ML SYRINGE SC SCH (11:48)
[2023-07-18] MEDS: PRAVASTATIN SODIUM 20 MG TAB PO SCH (22:43)
[2023-07-18] MEDS: ATORVASTATIN 20 MG TAB PO SCH (22:44)
[2023-07-19] VITALS (14 sets, daily range): BP systolic 93–125; BP diastolic 38–71; PULSE 65–85; RESP 17–20; TEMP 97.7–98.4; O2SAT 67–100
[2023-07-19] MEDS: VANCOMYCIN 1GM/200ML 250 ML IV SCH ×2 (06:43→17:48)
[2023-07-19] MEDS: SODIUM CHLOR 0.9% PF (SALINE LOCK) 10ML VIAL/SYR IV SCH ×3 (06:43→22:34)
[2023-07-19 06:47] LABS: Basophils # (auto) 0 10 ^3/uL (0-0.2); Basophils % (auto) 0.2 % (0.0-2.0); Eosinophils # (auto) 0 10 ^3/uL (0-0.8); Eosinophils % (auto) 0.1 % (0.0-7.0); Hematocrit 33.6 % (41.0-53.0); Lymphocytes # (auto) 0.7 10 ^3/uL (0.4-5.4); Lymphocytes % (auto) 4.3 % (10.0-50.0); Mean Corpuscular Hemoglobin 31.3 pg (28.0-32.0); Mean Corpuscular Hgb Conc. 32.9 g/dL (32.0-36.0); Mean Corpuscular Volume 95.2 fL (80.0-100.0); Monocytes # (auto) 0.3 10 ^3/uL (0-1.3); Monocytes % (auto) 1.7 % (0.0-12.0); Neutrophils # (auto) 15.8 10 ^3/uL (1.6-8.6); Neutrophils % (auto) 93.7 % (37.0-80.0); Nucleated Red Blood Cells % 0.1 %; Red Blood Cells 3.52 10^6/uL (4.5-5.90); Red Cell Distribution Width 13.5 % (11.8-14.3); White Blood Cell 16.8 10^3/uL (4.4-10.8)
[2023-07-19] MEDS: ACCU-CHEK COMFORT CURVE STRIP VI SCH ×4 (06:52→22:33)
[2023-07-19] MEDS: InsuLIN REG 1unit/0.01ml Soln (100units/ml) SC SCH ×4 (06:56→22:38)
[2023-07-19 06:58] LABS: Chloride 102 mmol/L (98-107); Sodium 136 mmol/L (136-145)
[2023-07-19 06:59] LABS: Anion Gap 6 (5-15); Calcium 9.1 mg/dL (8.7-10.4); Carbon Dioxide 28 mmol/L (20-30)
[2023-07-19] MEDS: ALBUTEROL SULF 2.5 MG/0.5ML(0.5%) NEB SOLN NEB SCH ×3 (07:03→19:03)
[2023-07-19 07:04] LABS: BUN/Creatinine Ratio 24.5 (10.0-20.0); Blood Urea Nitrogen 24 mg/dL (9-23); Glucose 247 mg/dL (74-106)
[2023-07-19] MEDS: IPRATROPIUM BROM 0.5 MG/2.5ML INH SOL NEB SCH ×3 (07:04→19:03)
[2023-07-19] MEDS: PIPERACILLIN-TAZOB 3.375GM 100 ML IV SCH ×3 (08:18→15:32)
[2023-07-19] MEDS: TICAGRELOR 90 MG TAB PO SCH (09:29)
[2023-07-19] MEDS: methylPREDNISolone SOD SUCC 40 MG/ML VL IV SCH ×2 (09:29→22:41)
[2023-07-19] MEDS: ENOXAPARIN SOD 30 MG/0.3 ML SYRINGE SC SCH (09:29)
[2023-07-19] MEDS: FUROSEMIDE 40 MG TAB PO SCH (09:29)
[2023-07-19] MEDS: CARVEDILOL 3.125 MG TAB PO SCH ×2 (09:30→22:41)
[2023-07-19] MEDS: CHOLECALCIFEROL (VITD3) 1,000UNIT=25mCg TAB PO SCH (09:30)
[2023-07-19] MEDS: glipiZIDE 5 MG TAB PO SCH ×2 (09:32→22:51)
[2023-07-19] MEDS: ASPirin-EC 81 mg tab PO SCH (09:32)
[2023-07-19] MEDS: Fenofibrate 48 MG PO SCH (09:40)
[2023-07-19 16:56] LABS: COVID19 ANTIGEN SOFIA FIA NEGATIVE (NEGATIVE)
[2023-07-19] MEDS: HYDROcodone-ACET 5/325MG TAB PO PRN (20:17)
[2023-07-19] MEDS: PRAVASTATIN SODIUM 20 MG TAB PO SCH (22:41)
[2023-07-19] MEDS: ATORVASTATIN 20 MG TAB PO SCH (22:41)
[2023-07-20] VITALS (15 sets, daily range): BP systolic 100–118; BP diastolic 51–83; PULSE 59–89; RESP 16–20; TEMP 97.6–98.8; O2SAT 93–100
[2023-07-20] MEDS: ACCU-CHEK COMFORT CURVE STRIP VI SCH ×4 (06:30→20:50)
[2023-07-20] MEDS: InsuLIN REG 1unit/0.01ml Soln (100units/ml) SC SCH ×5 (06:31→22:00)
[2023-07-20] MEDS: ALBUTEROL SULF 2.5 MG/0.5ML(0.5%) NEB SOLN NEB SCH ×3 (06:31→18:07)
[2023-07-20] MEDS: IPRATROPIUM BROM 0.5 MG/2.5ML INH SOL NEB SCH ×3 (06:31→18:07)
[2023-07-20] MEDS: SODIUM CHLOR 0.9% PF (SALINE LOCK) 10ML VIAL/SYR IV SCH ×3 (06:33→21:52)
[2023-07-20] MEDS: VANCOMYCIN 1GM/200ML 250 ML IV SCH ×2 (06:40→18:00)
[2023-07-20] MEDS: PIPERACILLIN-TAZOB 3.375GM 100 ML IV SCH ×4 (07:53→20:22)
[2023-07-20] MEDS: HYDROcodone-ACET 5/325MG TAB PO PRN ×2 (07:53→22:00)
[2023-07-20] MEDS: methylPREDNISolone SOD SUCC 40 MG/ML VL IV SCH ×2 (09:17→21:55)
[2023-07-20] MEDS: CHOLECALCIFEROL (VITD3) 1,000UNIT=25mCg TAB PO SCH (09:17)
[2023-07-20] MEDS: ASPirin-EC 81 mg tab PO SCH (09:17)
[2023-07-20] MEDS: ENOXAPARIN SOD 40 MG/0.4 ML SYRINGE SC SCH (09:17)
[2023-07-20] MEDS: glipiZIDE 5 MG TAB PO SCH ×2 (09:17→21:55)
[2023-07-20] MEDS: FUROSEMIDE 40 MG TAB PO SCH (09:18)
[2023-07-20] MEDS: CARVEDILOL 3.125 MG TAB PO SCH ×2 (09:18→21:57)
[2023-07-20] MEDS: TICAGRELOR 90 MG TAB PO SCH (09:19)
[2023-07-20] MEDS: Fenofibrate 48 MG PO SCH (09:19)
[2023-07-20] MEDS ORDERED: Ensure HIGH Protein Chocolate 8oz Bottle PO SCH (12:00)
[2023-07-20] MEDS: ATORVASTATIN 20 MG TAB PO SCH (21:55)
[2023-07-21] VITALS (15 sets, daily range): BP systolic 93–147; BP diastolic 62–86; PULSE 62–87; RESP 16–20; TEMP 97.6–98.2; O2SAT 95–100
[2023-07-21] MEDS: PIPERACILLIN-TAZOB 3.375GM 100 ML IV SCH ×2 (01:25→08:19)
[2023-07-21] MEDS: SODIUM CHLOR 0.9% PF (SALINE LOCK) 10ML VIAL/SYR IV SCH ×3 (06:08→22:10)
[2023-07-21] MEDS: ACCU-CHEK COMFORT CURVE STRIP VI SCH ×4 (06:09→22:10)
[2023-07-21] MEDS: VANCOMYCIN 1GM/200ML 250 ML IV SCH (06:09)
[2023-07-21] MEDS: InsuLIN REG 1unit/0.01ml Soln (100units/ml) SC SCH ×3 (06:19→18:06)
[2023-07-21 06:22] LABS: Chloride 102 mmol/L (98-107); Potassium 3.8 mmol/L (3.5-5.1); Sodium 138 mmol/L (136-145)
[2023-07-21 06:23] LABS: Anion Gap 6 (5-15); Calcium 9.2 mg/dL (8.5-10.1); Carbon Dioxide 30 mmol/L (20-30)
[2023-07-21 06:26] LABS: Basophils # (auto) 0.1 10 ^3/uL (0-0.2); Basophils % (auto) 0.8 % (0.0-2.0); Eosinophils # (auto) 0.2 10 ^3/uL (0-0.8); Eosinophils % (auto) 1.1 % (0.0-7.0); Hematocrit 35.2 % (41.0-53.0); Hemoglobin 11.6 g/dL (13.5-17.5); Lymphocytes # (auto) 2.1 10 ^3/uL (0.4-5.4); Lymphocytes % (auto) 12.7 % (10.0-50.0); Mean Corpuscular Hemoglobin 30.9 pg (28.0-32.0); Mean Corpuscular Volume 93.6 fL (80.0-100.0); Monocytes # (auto) 1.2 10 ^3/uL (0-1.3); Monocytes % (auto) 7.4 % (0.0-12.0); Neutrophils # (auto) 12.6 10 ^3/uL (1.6-8.6); Red Blood Cells 3.76 10^6/uL (4.5-5.90); Red Cell Distribution Width 13.3 % (11.8-14.3); White Blood Cell 16.2 10^3/uL (4.4-10.8)
[2023-07-21 06:28] LABS: BUN/Creatinine Ratio 17.3 (10.0-20.0); Blood Urea Nitrogen 19 mg/dL (9-23); Glucose 271 mg/dL (74-106); Triglycerides 166 mg/dL (< 150)
[2023-07-21 06:29] LABS: LDL Cholesterol 104 mg/dL (< 100)
[2023-07-21 06:30] LABS: Cholesterol 166 mg/dL (< 200); HDL Cholesterol 34 mg/dL (40-59)
[2023-07-21] MEDS: IPRATROPIUM BROM 0.5 MG/2.5ML INH SOL NEB SCH ×3 (06:37→18:23)
[2023-07-21] MEDS: ALBUTEROL SULF 2.5 MG/0.5ML(0.5%) NEB SOLN NEB SCH ×3 (06:37→18:23)
[2023-07-21] MEDS: HYDROcodone-ACET 5/325MG TAB PO PRN ×3 (08:19→23:12)
[2023-07-21] MEDS ORDERED: DEXTROSE (50%) 50ML SYRG IV PRN (08:30)
[2023-07-21] MEDS: Fenofibrate 48 MG PO SCH (10:00)
[2023-07-21] MEDS: ENOXAPARIN SOD 40 MG/0.4 ML SYRINGE SC SCH (10:11)
[2023-07-21] MEDS: methylPREDNISolone SOD SUCC 40 MG/ML VL IV SCH ×2 (10:11→22:13)
[2023-07-21] MEDS: SACUBITRIL-VALSARTAN 24mg/26mg TAB PO SCH ×2 (10:11→22:13)
[2023-07-21] MEDS: CHOLECALCIFEROL (VITD3) 1,000UNIT=25mCg TAB PO SCH (10:12)
[2023-07-21] MEDS: FUROSEMIDE 40 MG TAB PO SCH (10:12)
[2023-07-21] MEDS: ASPirin-EC 81 mg tab PO SCH (10:12)
[2023-07-21] MEDS: SPIRONOLACTONE 25 MG TAB PO SCH (10:13)
[2023-07-21] MEDS: CARVEDILOL 3.125 MG TAB PO SCH ×2 (10:13→22:14)
[2023-07-21] MEDS: TICAGRELOR 90 MG TAB PO SCH (10:13)
[2023-07-21] MEDS ORDERED: MAGNESIUM SULFATE 1GM/100ML 100 ML IV ONE (11:00)
[2023-07-21] MEDS ORDERED: levoFLOXacin 750MG 150 ML IV ONE (13:45)
[2023-07-21] MEDS: FUROSEMIDE 40 MG/4 ML VIAL IV SCH (18:04)
[2023-07-21] MEDS: metFORMIN HYDROCHLORIDE 500 MG TAB PO SCH (18:08)
[2023-07-21] MEDS ORDERED: InsuLIN REG 1unit/0.01ml Soln (100units/ml) SC SCH (22:00)
[2023-07-21] MEDS: ATORVASTATIN 20 MG TAB PO SCH (22:13)
[2023-07-22] VITALS (7 sets, daily range): BP systolic 109–118; BP diastolic 61–73; PULSE 61–74; RESP 16–20; TEMP 36.6; O2SAT 93–100
[2023-07-22] MEDS: SODIUM CHLOR 0.9% PF (SALINE LOCK) 10ML VIAL/SYR IV SCH (06:04)
[2023-07-22] MEDS: ACCU-CHEK COMFORT CURVE STRIP VI SCH ×2 (06:14→11:30)
[2023-07-22] MEDS: FUROSEMIDE 40 MG/4 ML VIAL IV SCH (06:14)
[2023-07-22] MEDS: InsuLIN REG 1unit/0.01ml Soln (100units/ml) SC SCH ×2 (06:15→11:30)
[2023-07-22] MEDS ORDERED: EMPAGLIFLOZIN 10 MG TAB PO SCH (07:00)
[2023-07-22] MEDS: ALBUTEROL SULF 2.5 MG/0.5ML(0.5%) NEB SOLN NEB SCH ×2 (07:32→11:29)
[2023-07-22] MEDS: IPRATROPIUM BROM 0.5 MG/2.5ML INH SOL NEB SCH ×2 (07:33→11:29)
[2023-07-22] MEDS ORDERED: EMPA1TAB PO (08:22)
[2023-07-22] MEDS ORDERED: SPIR25TA PO (08:22)
[2023-07-22] MEDS ORDERED: SACU1TAB PO (08:22)
[2023-07-22] MEDS ORDERED: FURO1TAB31 PO (08:22)
[2023-07-22] MEDS ORDERED: LEVO750T8 PO (08:22)
[2023-07-22] MEDS: methylPREDNISolone SOD SUCC 40 MG/ML VL IV SCH (08:44)
[2023-07-22] MEDS: CHOLECALCIFEROL (VITD3) 1,000UNIT=25mCg TAB PO SCH (08:45)
[2023-07-22] MEDS: SACUBITRIL-VALSARTAN 24mg/26mg TAB PO SCH (08:45)
[2023-07-22] MEDS: ENOXAPARIN SOD 40 MG/0.4 ML SYRINGE SC SCH (08:45)
[2023-07-22] MEDS: TICAGRELOR 90 MG TAB PO SCH (08:46)
[2023-07-22] MEDS: SPIRONOLACTONE 25 MG TAB PO SCH (08:46)
[2023-07-22] MEDS: metFORMIN HYDROCHLORIDE 500 MG TAB PO SCH (08:46)
[2023-07-22] MEDS: ASPirin-EC 81 mg tab PO SCH (08:46)
[2023-07-22] MEDS: CARVEDILOL 3.125 MG TAB PO SCH (08:47)
[2023-07-22] MEDS: Fenofibrate 48 MG PO SCH (08:48)
[2023-07-22] MEDS ORDERED: levoFLOXacin 750MG 150 ML IV SCH (10:00)
== END 2023-07-22 11:37 | disposition home or self-care (01) | DRG 137 ==
LOC: ER 06:16 → TELE 10:43 → TELE-CENTR 10:43
PROVIDERS: ADMIT Nurse Practitioner Family; ATTEND Family Medicine
DX: J15.69 Pneumonia due to other Gram-negative bacteria (principal); J96.01 Acute respiratory failure with hypoxia; I50.23 Acute on chronic systolic (congestive) heart failure; E44.0 Moderate protein-calorie malnutrition; I11.0 Hypertensive heart disease with heart failure; J15.9 Unspecified bacterial pneumonia; Z93.0 Tracheostomy status; Z99.81 Dependence on supplemental oxygen; E11.9 Type 2 diabetes mellitus without complications; E66.01 Morbid (severe) obesity due to excess calories; E78.5 Hyperlipidemia, unspecified; F17.210 Nicotine dependence, cigarettes, uncomplicated; G89.29 Other chronic pain; J44.0 Chronic obstructive pulmonary disease with (acute) lower respiratory infection; J96.21 Acute and chronic respiratory failure with hypoxia; Z20.822 Contact with and (suspected) exposure to COVID-19; I25.10 Atherosclerotic heart disease of native coronary artery without angina pectoris; I25.2 Old myocardial infarction; Z68.42 Body mass index [BMI] 45.0-49.9, adult; Z79.02 Long term (current) use of antithrombotics/antiplatelets; Z79.4 Long term (current) use of insulin; Z79.84 Long term (current) use of oral hypoglycemic drugs; Z79.899 Other long term (current) drug therapy; Z82.49 Family history of ischemic heart disease and other diseases of the circulatory system; Z83.3 Family history of diabetes mellitus; Z95.5 Presence of coronary angioplasty implant and graft
CPT/HCPCS: 36415; 71045; 80048; 80053; 80061; 80202; 82565; 82962; 83036; 83605; 83735; 83880; 84484; 85025; 87040; 87426; 93005; 93306; 94640; 96374; 96375; 99291; G0378; J0696; J1815; J1956; J2543

== ENCOUNTER 2023-12-07 17:54 | Emergency (ER) | payer MEDICAID ==
[~2023-12-07] VITALS: Ht 167.6 cm; Wt 127.0 kg
[~2023-12-07 17:54] MED LIST changes: -ATOR40TA52 PO; -CAR3125T PO; +CARV-214 PO; +CHOL50007 PO; +EMPA1TAB PO; +FURO1TAB31 PO; -GLIP5TAB12 PO; +GLIP5TAB21 PO; -LEVO500T91 PO; +LEVO750T8 PO; -PERCOT PO; +SIMV10TA20 PO; +SPIR25TA PO
[2023-12-07 20:17] VITALS: BP 144/81; PULSE 85; RESP 16; TEMP 100.1; O2SAT 91
[2023-12-07] MEDS: ACETAMINOPHEN 325 MG TAB PO ONE (20:21)
[2023-12-07] MEDS ORDERED: CEPH500C PO (20:32)
== END 2023-12-07 20:57 | disposition home or self-care (01) ==
LOC: ER 17:54
DX: L02.32 Furuncle of buttock (principal); J44.9 Chronic obstructive pulmonary disease, unspecified; E11.9 Type 2 diabetes mellitus without complications; F17.210 Nicotine dependence, cigarettes, uncomplicated; I25.2 Old myocardial infarction

== ENCOUNTER 2024-01-06 14:50 | Inpatient (IN) | payer MEDICAID ==
[~2024-01-06] VITALS: Ht 177.8 cm; Wt 136.0 kg
[~2024-01-06 14:50] MED LIST changes: +CEPH500C PO
[2024-01-06 16:26] LABS: Basophils # (auto) 0.1 10 ^3/uL (0-0.2); Basophils % (auto) 0.8 % (0.0-2.0); Eosinophils # (auto) 0.2 10 ^3/uL (0-0.8); Eosinophils % (auto) 1.5 % (0.0-7.0); Hematocrit 41.3 % (41.0-53.0); Hemoglobin 13.6 g/dL (13.5-17.5); Lymphocytes # (auto) 1.1 10 ^3/uL (0.4-5.4); Lymphocytes % (auto) 11.3 % (10.0-50.0); Mean Corpuscular Hemoglobin 29.6 pg (28.0-32.0); Mean Corpuscular Volume 89.9 fL (80.0-100.0); Monocytes # (auto) 0.6 10 ^3/uL (0-1.3); Monocytes % (auto) 6.4 % (0.0-12.0); Neutrophils # (auto) 8.1 10 ^3/uL (1.6-8.6); Nucleated Red Blood Cells % 0.1 %; Red Blood Cells 4.59 10^6/uL (4.5-5.90); Red Cell Distribution Width 13.9 % (11.8-14.3); White Blood Cell 10.1 10^3/uL (4.4-10.8)
[2024-01-06 16:52] LABS: Alanine Aminotransferase 17 U/L (7-40); Alkaline Phosphatase 91 U/L (46-116); Anion Gap 7 (5-15); Aspartate Aminotransferase 14 U/L (13-40); BUN/Creatinine Ratio 27.8 (10.0-20.0); Blood Urea Nitrogen 25 mg/dL (9-23); Calcium 9.4 mg/dL (8.5-10.1); Carbon Dioxide 28 mmol/L (20-30); Chloride 104 mmol/L (98-107); Glucose 62 mg/dL (74-106); Potassium 4.1 mmol/L (3.5-5.1); Sodium 139 mmol/L (136-145)
[2024-01-06 16:53] LABS: Albumin 3.7 g/dL (3.2-4.8); Bilirubin, Total 0.7 mg/dL (0.2-1.0); Total Protein 6.9 g/dL (5.7-8.2)
[2024-01-06] MEDS: IOHEXOL 350 MG/ML 100ML IJ ONE ×2 (19:35→20:57)
[2024-01-06] MEDS ORDERED: ONDANSETRON HCL 4 MG/2 ML VIAL IV PRN (21:15)
[2024-01-06] MEDS ORDERED: ACETAMINOPHEN 325 MG TAB PO PRN (21:15)
[2024-01-06] MEDS ORDERED: DOCUSATE SOD 100 MG CAP PO PRN (21:15)
[2024-01-06] MEDS ORDERED: DEXTROSE (50%) 50ML SYRG IV PRN (21:15)
[2024-01-06] MEDS ORDERED: MORPHINE SULFATE INJ 2 MG/ml SYRG IV PRN (22:45)
[2024-01-06] MEDS ORDERED: NITROGLYCERIN 0.4 MG SL TAB SL PRN (22:45)
[2024-01-07] VITALS (10 sets, daily range): BP systolic 88–127; BP diastolic 46–82; PULSE 57–101; RESP 14–19; TEMP 97.7–98.5; O2SAT 98–100
[2024-01-07] MEDS: SODIUM CHLOR 0.9% PF (SALINE LOCK) 10ML VIAL/SYR IV SCH (01:05)
[2024-01-07] MEDS: InsuLIN REG 1unit/0.01ml Soln (100units/ml) SC SCH (02:10)
[2024-01-07] MEDS: ACCU-CHEK COMFORT CURVE STRIP VI SCH (02:10)
[2024-01-07] MEDS: ASPirin 81 mg TAB PO ONE (02:22)
[2024-01-07] MEDS: ATORVASTATIN 20 MG TAB PO SCH (02:22)
[2024-01-07 09:04] LABS: Basophils # (auto) 0.1 10 ^3/uL (0-0.2); Basophils % (auto) 0.7 % (0.0-2.0); Eosinophils # (auto) 0.2 10 ^3/uL (0-0.8); Eosinophils % (auto) 2.5 % (0.0-7.0); Hematocrit 39.7 % (41.0-53.0); Hemoglobin 13.2 g/dL (13.5-17.5); Lymphocytes # (auto) 1.2 10 ^3/uL (0.4-5.4); Lymphocytes % (auto) 12.1 % (10.0-50.0); Mean Corpuscular Hemoglobin 29.8 pg (28.0-32.0); Mean Corpuscular Hgb Conc. 33.4 g/dL (32.0-36.0); Mean Corpuscular Volume 89.2 fL (80.0-100.0); Monocytes # (auto) 0.7 10 ^3/uL (0-1.3); Monocytes % (auto) 7.4 % (0.0-12.0); Neutrophils # (auto) 7.4 10 ^3/uL (1.6-8.6); Neutrophils % (auto) 77.3 % (37.0-80.0); Red Blood Cells 4.45 10^6/uL (4.5-5.90); Red Cell Distribution Width 13.8 % (11.8-14.3); White Blood Cell 9.6 10^3/uL (4.4-10.8)
[2024-01-07] MEDS: ASPirin 81 mg TAB PO SCH (09:22)
[2024-01-07 09:36] LABS: Alanine Aminotransferase 12 U/L (7-40); Alkaline Phosphatase 82 U/L (46-116); Anion Gap 4 (5-15); Aspartate Aminotransferase 11 U/L (13-40); Blood Urea Nitrogen 20 mg/dL (9-23); Calcium 9.1 mg/dL (8.5-10.1); Carbon Dioxide 30 mmol/L (20-30); Chloride 104 mmol/L (98-107); Glucose 100 mg/dL (74-106); Potassium 3.7 mmol/L (3.5-5.1); Sodium 138 mmol/L (136-145)
[2024-01-07 09:37] LABS: Bilirubin, Total 0.5 mg/dL (0.2-1.0); Total Protein 6.8 g/dL (5.7-8.2)
[2024-01-07] MEDS: HYDROcodone-ACET 5/325MG TAB PO PRN (20:38)
[2024-01-07] MEDS: TICAGRELOR 90 MG TAB PO SCH (22:29)
[2024-01-07 22:49] LABS: Urine Bacteria None Seen /hpf (None Seen)
[2024-01-07 23:01] LABS: Urine Blood Negative /uL (Negative); Urine Clarity Clear (Clear); Urine Color Yellow (Yellow); Urine Protein, UAD 2+ (Negative); Urine Specific Gravity 1.045 (1.001-1.035); Urine Urobilinogen Normal (Negative); Urine WBC <1 /hpf (0 - 3); Urine pH 6.5 (5.0-9.0)
[2024-01-07 23:07] LABS: Amphetamine Screen, Urine Neg (NEGATIVE); Barbiturate Scree,Urine Neg (NEGATIVE); Benzodiazephine Screen, Urine Neg (NEGATIVE); Cannabinoid Screen, Urine Neg (NEGATIVE); Cocaine Screen, Urine Neg (NEGATIVE); Opiate Scree,Urine Pos (NEGATIVE); Phencyclidine Screen, Urine Neg (NEGATIVE)
[2024-01-08] VITALS (9 sets, daily range): BP systolic 92–121; BP diastolic 42–70; PULSE 55–82; RESP 16–21; TEMP 97.4–99.2; O2SAT 95–100
[2024-01-08] MEDS: HYDROcodone-ACET 10/325MG TAB PO PRN (00:48)
[2024-01-08] MEDS ORDERED: CHOL200021 PO (10:15)
[2024-01-08] MEDS ORDERED: GLIP10TA9 PO (10:15)
[2024-01-08] MEDS ORDERED: NITR0.4S29 SL (10:18)
[2024-01-08] MEDS ORDERED: LIDO1.8P EX (10:18)
[2024-01-08] MEDS ORDERED: LORazepam 2MG/ML-1ML VIAL IV PRN (23:00)
[2024-01-09] VITALS (13 sets, daily range): BP systolic 100–129; BP diastolic 44–71; PULSE 56–74; RESP 14–21; TEMP 97.8–98.1; O2SAT 95–100
[2024-01-09] MEDS: ALBUTEROL SULF 2.5 MG/0.5ML(0.5%) NEB SOLN NEB PRN (02:35)
[2024-01-09] MEDS: FUROSEMIDE 20 MG TAB PO ONE (13:57)
[2024-01-09] MEDS: ATORVASTATIN 20 MG TAB PO SCH (19:40)
[2024-01-10] VITALS (9 sets, daily range): BP systolic 93–134; BP diastolic 37–81; PULSE 70–80; RESP 16–18; TEMP 98–98.4; O2SAT 93–99
[2024-01-10] MEDS: FUROSEMIDE 20 MG TAB PO SCH (08:45)
[2024-01-10] MEDS: EMPAGLIFLOZIN 10 MG TAB PO SCH (08:45)
== END 2024-01-10 16:35 | disposition home or self-care (01) | DRG 420 ==
LOC: ER 14:50 → EDBD 14:50 → TELE 22:45 → TELE-WESTW 01-07 04:25
PROVIDERS: ADMIT Nurse Practitioner Family; ATTEND Internal Medicine
DX: E11.649 Type 2 diabetes mellitus with hypoglycemia without coma (principal); I50.23 Acute on chronic systolic (congestive) heart failure; I42.9 Cardiomyopathy, unspecified; Z93.0 Tracheostomy status; Z99.81 Dependence on supplemental oxygen; I11.0 Hypertensive heart disease with heart failure; R55 Syncope and collapse; F17.210 Nicotine dependence, cigarettes, uncomplicated; I25.10 Atherosclerotic heart disease of native coronary artery without angina pectoris; J44.9 Chronic obstructive pulmonary disease, unspecified; E78.5 Hyperlipidemia, unspecified; E11.42 Type 2 diabetes mellitus with diabetic polyneuropathy; I44.7 Left bundle-branch block, unspecified; J98.11 Atelectasis; K80.20 Calculus of gallbladder without cholecystitis without obstruction; Z96.611 Presence of right artificial shoulder joint; E66.01 Morbid (severe) obesity due to excess calories; Z98.61 Coronary angioplasty status; I25.2 Old myocardial infarction; Z83.3 Family history of diabetes mellitus; Z82.49 Family history of ischemic heart disease and other diseases of the circulatory system; Z79.82 Long term (current) use of aspirin; Z79.899 Other long term (current) drug therapy; Z79.02 Long term (current) use of antithrombotics/antiplatelets; Z79.84 Long term (current) use of oral hypoglycemic drugs; Z87.01 Personal history of pneumonia (recurrent); Z68.41 Body mass index [BMI] 40.0-44.9, adult
CPT/HCPCS: 36415; 70450; 70551; 71045; 71275; 80053; 80307; 81001; 82962; 83605; 83880; 84132; 84484; 85025; 85379; 87040; 93005; 93306; 93886; 94640; 95819; G0378; J1815